=== PATIENT | female | born 2005 | race American Indian/Alaskan Native ===

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

== ENCOUNTER 2024-01-06 12:57 | Emergency (ER) | payer MEDICAID ==
[2024-01-06 13:54] LABS: BASOPHILS ABSOLUTE AUTO 0.03 K/uL (0.00-0.10); BASOPHILS PERCENT AUTO 0.2 % (0.1-1.3); HEMOGLOBIN 10.8 g/dL (11.2-15.5); IMMATURE GRAN ABSOLUTE AUTO 0.06 K/uL (0.00-0.23); IMMATURE GRAN PERCENT AUTO 0.4 % (0.0-0.7); LYMPHOCYTES ABSOLUTE AUTO 1.14 K/uL (0.8-3.3); LYMPHOCYTES PERCENT AUTO 8.3 % (11.4-47.7); MEAN CORPUSCULAR HEMOGLOBIN 22.5 pg (31.6-35.5); MEAN CORPUSCULAR HGB CONC 31.8 g/dL (31.6-35.5); MEAN CORPUSCULAR VOLUME 70.7 fL (81.4-99.0); MONOCYTES ABSOLUTE AUTO 0.24 K/uL (0.20-0.90); MONOCYTES PERCENT AUTO 1.8 % (3.3-12.6); NEUTROPHILS ABSOLUTE AUTO 12.23 K/uL (1.0-7.6); NEUTROPHILS PERCENT AUTO 89.3 % (40.0-78.1); PLATELET COUNT,PLT 559 K/uL (130-375); RED BLOOD CELL COUNT 4.81 M/uL (3.77-5.24); WHITE BLOOD CELL COUNT,WBC 13.7 K/uL (3.2-11.0)
[2024-01-06 14:25] LABS: A/G RATIO 0.7 (1.2-2.2); ALANINE AMINOTRANSFERASE,ALT 18 U/L (12-78); ALBUMIN 3.6 g/dL (3.4-5.0); ALKALINE PHOSPHATASE 156 U/L (46-116); ASPARTATE AMNIOTRANSFERASE,AST 14 U/L (15-37); BILIRUBIN TOTAL 0.3 mg/dL (0.2-1.0); BLOOD UREA NITROGEN,BUN 5 mg/dL (7-18); CALCIUM 9.3 mg/dL (8.5-10.1); CARBON DIOXIDE,CO2 22 mmol/L (21-32); CHLORIDE,CL 103 mmol/L (100-108); CREATININE 0.7 mg/dL (0.6-1.0); EST CRCL DRUG DOSING (CG) 106.93 mL/min; ESTIMATED GFR 128 mL/min (>60); GLUCOSE RANDOM 153 mg/dL (74-106); POTASSIUM,K 3.7 mmol/L (3.6-5.2); PROTEIN TOTAL,TP 9.1 g/dL (6.4-8.2); SODIUM,NA 138 mmol/L (140-148)
[2024-01-06 14:27] LABS: ANION GAP 16.7 mmol/L (5.0-14.0)
[2024-01-06] MEDS: Sodium Chloride 0.9% 1,000 ML IV SCH (14:55)
[2024-01-06] MEDS: Ketorolac 30 MG/ML SDV IVPUSH ONE (14:58)
[2024-01-06 15:03] VITALS: BP 126/79; PULSE 82
[2024-01-06 15:58] LABS: APPEARANCE,URINE SLIGHTLY CLOUDY (CLEAR); BILIRUBIN,URINE NEGATIVE (NEGATIVE); COLOR,URINE YELLOW (YELLOW); GLUCOSE,URINE 100 mg/dL (NEGATIVE); KETONES,URINE 15 mg/dL (NEGATIVE); LEUKOCYTE ESTERASE,URINE NEGATIVE (NEGATIVE); NITRITE,URINE NEGATIVE (NEGATIVE); OCCULT BLOOD,URINE LARGE (NEGATIVE); PROTEIN,URINE 100 mg/dL (NEGATIVE); UROBILINOGEN,URINE 0.2 EU/dL (0.2-1.0)
[2024-01-06 16:03] LABS: RBC,URINE PACKED (0-5)
[2024-01-06 16:04] LABS: AMORPHOUS SEDIMENT,URINE NOT SEEN; BACTERIA,URINE RARE; EPITHELIAL CELLS,URINE RARE; MUCUS,URINE NOT SEEN
== END 2024-01-06 16:31 | disposition home or self-care (01) ==
LOC: JP.ED 12:57
DX: G43.909 Migraine, unspecified, not intractable, without status migrainosus (principal); E10.65 Type 1 diabetes mellitus with hyperglycemia; E03.9 Hypothyroidism, unspecified; Z86.16 Personal history of COVID-19; Z79.4 Long term (current) use of insulin; Z79.899 Other long term (current) drug therapy; Z88.2 Allergy status to sulfonamides
CPT/HCPCS: 36415; 80053; 81001; 81025; 83690; 85025; 96361; 96374; 99284; J1885; J7030